=== PATIENT | female | born 1960 | race Caucasian/White ===

== ENCOUNTER 2018-08-13 08:01 | Day surgery (SDC) | payer OTHER ==
[~2018-08-13] VITALS: Ht 162.6 cm; Wt 62.1 kg
[2018-08-13] MEDS ORDERED: OMEPRAZOLE (08:54)
[2018-08-13 08:55] VITALS: Ht 162.6 cm; Wt 62.1 kg
[2018-08-13 09:07] VITALS: BP 151/74; PULSE 63; RESP 24
[2018-08-13] MEDS ORDERED: FENTAnyl 50 MCG/ML VIAL ONE (09:42)
[2018-08-13] MEDS ORDERED: MIDAZOLAM 1 MG/ML 2 ML INJ ONE ×3 (09:42→09:43)
[2018-08-13 09:54] VITALS: BP 132/73; PULSE 55; RESP 18
--- NOTE | 2018-08-14 07:28 | CONS ---
DATE OF ADMISSION: 08/13/2018 DATE OF CONSULTATION: PATIENT NAME: OPHELIA PATEL Dear Dr. Cantu: I thank you very much for this kind referral. HISTORY OF PRESENT ILLNESS: Ms. Ophelia Patel is a 57-year-old female patient who has been referred to me for further evaluation of positive occult blood in the stool. No past history of colon neopla sm. Appetite is good. No weight loss. The patient gives history of gastroesophageal reflux disease and she has been taking omeprazole. Not on nonsteroidal anti-inflammatory agents. No history of ga llstones or liver disease. Not a hypertensive or diabetic. No heart disease, lung problem or kidney disease. SOCIAL HISTORY: Nonsmoker. No alcohol abuse. FAMILY HISTORY: No family history of gastrointestinal tract neoplasm. ALLERGIES: NO DRUG ALLERGIES. MEDICATION: Omeprazole. PHYSICAL EXAMINATION: VITAL SIGNS: She is 5 feet 4 inches tall and weighs 142 pounds. HEART: Normal heart sounds. LUNGS: Clear. ABDOMEN: Soft. No masses. Normal bowel sounds. NEUROLOGIC: Normal neurological exam. IMPRESSION: 1. Positive occult blood in the stool. 2. The patient needs screening colonoscopy. 3. Gastroesophageal reflux disease. 4. She is on omeprazole. PLAN: Colonoscopy for further evaluation. The procedure and possible complications are well explained to the patient. She understands and cons ents to the procedure. I thank you once again. With warmest personal regards, Dictated By: TERESA JORDAN/MALENA Conf#: [id number] DID#: [id number] CC: Dr. Cantu;*EndCC*
== END 2018-08-13 10:14 | disposition home or self-care (01) ==
LOC: GIL 08:01
PROVIDERS: ATTEND Internal Medicine Gastroenterology
DX: K92.1 Melena (principal); D12.5 Benign neoplasm of sigmoid colon; K64.8 Other hemorrhoids
CPT/HCPCS: 45380; 88305; J2250; J3010; Z7610